=== PATIENT | male | born 1995 ===

== ENCOUNTER 2019-10-08 20:42 | Emergency (ER) | payer OTHER, SELFPAY ==
--- NOTE | 2019-10-08 20:45 | ED_ITS ---
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 Patient states that he was running at work when he felt a ?pop? in the back of his right leg. Since that he has had pain with walking and flexing his knee. No prior injuries to this area. Walked into the emergency department. Has tried nothing for symptoms prior to arrival Related Data Home Medications Medication Instructions Recorded Confirmed No Known Home Medications 10/08/19 10/08/19 Allergies Allergy/AdvReac Type Severity Reaction Status Date / Time No Known Drug Allergies Allergy Verified 10/08/19 20:54 Review of Systems Constitutional Constitutional: Denies frequent falls Musculoskeletal Comments: Right hamstring pain Integumentary/Breasts Skin/Breast: Denies lesions and Denies rash Neurologic Neurologic: Denies behavioral changes and Denies frequent falls Psychiatric Psychiatric: Denies behavioral changes Hematologic/Lymphatic Hematologic/Lymphatic: Denies easy bleeding and Denies easy bruising Patient History Social History Smoking Status: Never smoker Exam Initial Vital Signs Initial Vital Signs: Vital Signs Temperature 98.4 F 10/08/19 20:48 Pulse Rate 72 10/08/19 20:48 Respiratory Rate 16 10/08/19 20:48 Blood Pressure 156/90 H 10/08/19 20:48 Pulse Oximetry 98 10/08/19 20:48 Const General: cooperative and healthy appearing Limitations: mental status not altered HENMS Head: normal to inspection and normocephalic Resp Effort & Inspection: normal respiratory effort Neuro Sensory Exam: no sensory deficits noted Extrem Other: Patient is no right knee tenderness. No distal right lower extremity tenderness. No tenderness to palpation over the semimembranosus tendon. He has no tenderness to palpation over the semitendinosus tendon however it does feel less taut than the semimembranosus and also feels different from the contralateral (left) side. Patient is able to flex and extend at the knee however has tenderness at the mid thigh posterior region on the right with fle xion of the knee. Course Vital Signs Vital signs: Vital Signs - 8 hr 10/08/19 20:48 Temperature 98.4 F Pulse Rate 72 Respiratory Rate 16 Blood Pressure 156/90 H Pulse Oximetry 98 Medical Decision Making MDM Narrative Medical decision making narrative: Low suspicion for fracture. Low suspicion for DVT I do have a high suspicion that he has disrupted the semi tendinosis tendon on the right. Potentially could be a complete tear versus partial tear. I feel we could hold on radiologic studies. We did discuss conservative treatment. He will contact his medical department tomorrow for follow-up in to discuss referral to see Orthopedics. He was given return precautions and follow-up instructions. He expressed understanding and agreement. Discharge Plan Departure Patient Disposition: Home Clinical Impression: Hamstring muscle strain Qualifiers: Encounter type: initial encounter Laterality: right Qualified Code(s): S76.311A - Strain of muscle, fascia and tendon of the posterior muscle group at thigh level, right thigh, initial encounter Instructions: DI for Hamstring Strain, How To Perform RICE (Rest, Ice, Compress, Elevate) Activity Restrictions/Additional Instructions: You can walk and stand however I do recommend no running for the time being. I recommend that tomorrow you contact your medical department about a referral to see Orthopedics. You can take anti-inflammatories like Motrin or Naprosyn. Also recommend that you put ice over the area. You could potentially develop some bruising like we discussed. Return to the emergency department for any new or worsening symptoms Prescriptions: No Action No Known Home Medications RF: 0 Stand Alone Forms: Work Release Note
[2019-10-08 20:48] VITALS: BP 156/90; PULSE 72; RESP 16; TEMP 36.9; O2SAT 98
== END 2019-10-08 21:09 | disposition home or self-care (01) ==
PROVIDERS: Emergency Provider Emergency Medicine
DX: S76.311A Strain of muscle, fascia and tendon of the posterior muscle group at thigh level, right thigh, initial encounter (principal); Y93.02 Activity, running
CPT/HCPCS: 99281